=== PATIENT | male | born 1970 | race Caucasian/White ===

== ENCOUNTER 2025-03-06 13:55 | Emergency (ER) | payer MEDICAID, SELFPAY ==
[2025-03-06 13:57] VITALS: BP 112/78; PULSE 117; RESP 19; TEMP 36.4; O2SAT 93
[2025-03-06 14:02] VITALS: PULSE 121; RESP 18; O2SAT 98; BMI 27.3
--- NOTE | 2025-03-06 14:44 | EKG_ITS ---
[facility] Test Date: 2025-03-06 Pat Name: MARY CARMEN HAMEED Department: Room: - Gender: Male Solution Mixer: : 1970 Requested By: Belkis Moreno ([facility]) Mark Order Number: [id number] Reading MD: Belkis Moreno ([facility]) Mark Measurements Intervals [place] Rate: 111 P: 26 CA: 116 QRS: 7 QRSD: 100 T: 34 QT: 296 QTc: 403 Interpretive Statements SINUS TACHYCARDIA WITH SHORT CA INTERVAL NONSPECIFIC T-WAVE ABNORMALITY ABNORMAL RHYTHM ECG No previous ECG available for comparison /store/S0/[id number].pdf
--- NOTE | 2025-03-06 14:44 | XR_ITS ---
Examination: CT brain head without contrast. 2-D sagittal coronal reconstructions Date and time of exam:March 06, 2025 1500 hours INDICATIONS: Patient fell today with injury to the head, head pain CTDI: vol (mGy):49 DLP: (mGycm):1121 Technique: Multiple CT axial sections of the brain have been obtained, 5 mm slice thickness. Contrast has not been administered. 2-D sagittal, coronal reconstructions have been obtained Low dose protocols were performed. One or more of the following dose reduction techniques were used; automated exposure control, adjustment of the mA and/or KV according to patient size, use of iterative reconstruction technique. Findings: Mild ventricular asymmetry Intra-axial or extra-axial hemorrhage density is not seen. No mass effect or midline shift Basal cisterns are not remarkable. Fourth ventricle is midline. Cranial vault intact. Impression: Negative for acute hemorrhage, mass effect or midline shift
--- NOTE | 2025-03-06 14:44 | XR_ITS ---
Examination: AP chest single view Technique one AP portable upright chest single view Exam date and time: March 06, 2025 1517 hours INDICATIONS: Patient fell today, chest pain FINDINGS: Bibasilar opacity most consistent with pneumonia No pneumothorax Normal heart size Clavicles ribs appear intact IMPRESSION: Bibasilar opacity most consistent with pneumonia Possible small left pleural effusion
--- NOTE | 2025-03-06 14:44 | XR_ITS ---
Examination: CT cervical spine without contrast 2-D sagittal reconstructions 2-D coronal reconstructions 3-D reconstructions. Exam date and time:February 1500 hours INDICATIONS: Patient fell today with injury to the neck, neck pain CTDI:vol (mGy) 12.1 DLP: (mGycm) 310 Technique: Multiple 2 mm axial sections of the cervical spine have been obtained. The coronal and sagittal reconstructions have been obtained. 3-D reconstructions have been obtained. Low dose protocols were performed. One or more of the following dose reduction techniques were used; automated exposure control, adjustment of the mA and/or KV according to patient size, use of iterative reconstruction technique. Findings: Axial sections demonstrate intact base of the skull. C1 exhibit satisfactory relationship to the odontoid. No acute cervical vertebral body fracture seen. Alignment posterior spinous processes satisfactory. Impression: No acute cervical fracture.
--- NOTE | 2025-03-06 14:45 | XR_ITS ---
Examination: CT maxillofacial, without intravenous contrast. 2-D sagittal reconstructions. 3-D reconstructions. Date and time of exam:March 06, 2025 at 1500 hours INDICATIONS: Ground-level fall today with injury to the face, facial pain CTDI: vol (mGy):13.9 DLP: (mGycm):307 Technique: Multiple axial images of maxillofacial region, 3.0 mm slice thickness. 2-D sagittal and coronal reconstructions. 3-D reconstructions. Low dose protocols were performed. One or more of the following dose reduction techniques were used; automated exposure control, adjustment of the mA and/or KV according to patient size, use of iterative reconstruction technique. Findings: Frontal bones intact Orbital rims intact No nasal bone fracture No depression zygomatic arches Pterygoid plates maxilla and the mandible intact IMPRESSION: No acute facial fracture.
--- NOTE | 2025-03-06 14:46 | PD.EDRME ---
Rapid Medical Screening Exam RME Arrival date/time: 03/06/25 13:55 This is a 54-year-old male presents emergency department with complaints of fall this p.m. causing laceration and facial trauma. Also complaining of shortness of breath new onset abdominal swelling and bilateral leg swelling.. I have greeted and performed a focused initial assessment of this patient. Initial appropriate labs ordered at this time. A comprehensive ED assessment and evaluation of the patient and analysis of all test and completion of medical decision making process will be conducted by additional ED provider. Time Seen by Provider: 03/06/25 14:44 Vital signs: Vital Signs Temperature 97.5 F 03/06/25 13:57 Pulse Rate 117 H 03/06/25 13:57 Respiratory Rate 19 03/06/25 13:57 Blood Pressure 112/78 03/06/25 13:57 Pulse Oximetry (%) 93 L 03/06/25 13:57 Oxygen Delivery Method Room Air 03/06/25 13:57
[2025-03-06 15:22] LABS: Basophils # (Auto) 0.1 Thou/mm3 (0.0-0.2); Basophils % (Auto) 0 % (0-2.5); Eosinophils # (Auto) 0.1 Thou/mm3 (0.0-0.5); Eosinophils % (Auto) 1 % (0-10); Hematocrit 36.8 % (41.0-53.0); Hemoglobin 12.6 g/dL (13.5-16.0); Immature Granulocytes % (Auto) 1 % (0-0); Immature Granulocytes Auto 0.08 Thou/mm3 (0.00-0.00); Lymphocytes % (Auto) 7 % (10-50); Mean Corpuscular HGB Conc 34.2 g/dl (31.0-37.0); Mean Corpuscular Hemoglobin 38.7 pg (25.0-35.0); Mean Corpuscular Volume 113 fL (80-100); Monocytes # (Auto) 1.3 Thou/mm3 (0.0-0.8); Monocytes % (Auto) 9 % (0-12); Neutrophils # (Auto) 11.8 Thou/mm3 (1.8-7.7); Neutrophils % (Auto) 82 % (37-80); Nucleated Red Blood Cell % 0 /100 WBC (0); Platelet Count 165 Thou/mm3 (140-440); RDW Standard Deviation 59.7 fL (35.1-43.9); Red Blood Count 3.26 Miln/mm3 (4.50-5.90); White Blood Count 14.4 Thou/mm3 (3.8-10.6)
[2025-03-06 15:40] LABS: INR 1.4 (0.9-1.3); Prothrombin Time 15.1 Seconds (9.0-12.2)
[2025-03-06 15:46] LABS: Alanine Aminotransferase 45 U/L (10-49); Albumin, Serum 3.3 gm/dL (3.5-5.0); Albumin/Globulin Ratio 1.2 (1.2-2.2); Alkaline Phosphatase 209 U/L (46-116); Anion Gap 6 (7-16); Aspartate Amino Transferase 129 U/L (0-34); BUN/Creatinine Ratio 17 Ratio (12-20); Bilirubin,Total 4.5 mg/dL (0.3-1.2); Blood Urea Nitrogen 10 mg/dL (9-23); Calcium (Corrected) 9.6 mg/dL (8.5-10.1); Carbon Dioxide 29.5 mMol/L (20.0-31.0); Chloride 94 mMol/L (98-107); Creatinine (Component) 0.6 mg/dL (0.6-1.3); Estimated Creatinine Clearance 140.5 mL/min (>60); Globulin 2.8 gm/dL (2.3-3.5); Glucose 150 mg/dL (74-106); Lipase 33 U/L (12-53); Osmolality,Calculated 260 (275-295); Sodium 129 mMol/L (136-145); Total Protein 6.1 gm/dL (5.7-8.2); Troponin I < 0.002 ng/mL (0.0-0.045); eGFR > 60 See Note
[2025-03-06 15:55] LABS: B-Type Natriuretic Peptide < 20 pg/mL (0-100)
[2025-03-06 16:20] LABS: Path Review Blood Smear Sent to Pathologist
--- NOTE | 2025-03-06 18:22 | PD.EDWOUND ---
ED Wound/Laceration-RME/HPI General Stated Complaint: FALL Time Seen by Provider: 03/06/25 14:44 Arrival date/time: 03/06/25 13:55 RME / HPI RME / HPI narrative: 03/06/25 13:55 This is a 54-year-old male presents emergency department with complaints of fall this p.m. causing laceration and facial trauma. Also complaining of shortness of breath new onset abdominal swelling and bilateral leg swelling.. I have greeted and performed a focused initial assessment of this patient. Initial appropriate labs ordered at this time. A comprehensive ED assessment and evaluation of the patient and analysis of all test and completion of medical decision making process will be conducted by additional ED provider. This section includes all my notes and documentations, including HPI, PE, and ED course. Reuben Cm MD HPI: 54 y/o male here after falling outside about 6 hours ago. Had a mechanical fall after tripping. Landed on his face. No loss of consciousness. No significant headache or dizziness. Reports bleeding wounds in the face. No neck pain or back pain. No chest pain or abdominal pain. No pain in the arms or legs. No other complaints. ROS: All negative except as documented in HPI. Physical Exam: General:? Alert and oriented.? Eyes:? Conjunctivae and lids clear.? EOMI.? PERRL. ENT:? No nasal congestion.? Pharynx normal.? Tympanic membrane normal bilaterally.??? Neck:? Supple.? No tenderness. Heart:? RRR.? Lungs:? No respiratory distress.? Good air movement.? No rhonchi, wheezing, rales.?? Chest:? No tenderness. Abdomen:? Soft and nontender.? Normal bowel sounds.? No distension.? No rebound or guarding.?? Back:? No tenderness.?? Skin:? Warm and dry.??On the nose, there is a 1.25 cm full?skin thickness laceration with active bleeding. In the forehead, there is a jagged 4 cm full?skin thickness laceration with active bleeding. Multiple facial abrasions noted, varying size and shape. Neuro:? Alert and oriented X 3.? Cranial Nerves II-XII grossly intact.? No peripheral motor deficits. Musculoskeletal:? All major joints and bones are not tender with no limited ROM. I reviewed all diagnostic test results. My interpretation of the EKG is sinus rhythm with no acute ST?T changes. My interpretation of the chest x-ray is infiltrates. My review of the head and facial and cervical spine CT reports is NAD. Blood tests unremarkable. At this point, diagnoses include facial lacerations, facial contusion, facial abrasions, and pneumonia. Treatment here included Acetaminophen/Codeine Phosphate, Amoxicillin/Clavulanate Potassium, wound care with bacitracin, Diphtheria/Tetanus/Acell Pertussis. Patient felt much better. Recommend outpatient treatment. Not yet done: Based on my best medical judgment, made decision no further evaluation or treatment indicated at this time. Patient understands and agrees to the discharge instructions customized and printed, see below. Discharge instructions from Dr. Cm:? -- Fortunately, there is no very serious injury. Such as brain injury or broken neck or other broken bone or internal organ injury. -- Your laceration (forehead and nose) was repaired with 8 kelly. -- Keep the current dressing intact for 24 hours. -- After 24 hours, change the dressing once daily. -- First remove the dressing gently.? If it does not come off easily, run water through it until it comes off easily. -- Then gently wash with soap and water. -- After completely drying, apply antibiotic ointment and new dressing. -- Apply ice for 20 minutes every 2-3 hours today and tomorrow. Ibuprofen 800 mg every 6-8 hours today and tomorrow to decrease inflammation then as needed. Tylenol with codeine for severe pain. --Take Augmentin for pneumonia. -- See your doctor or return here in 5 days for staple removal.? Total of 8 kelly. Ask to check the status of your pneumonia. -- Seek immediate medical care with fever, spreading redness from the wound, or with any concerns. Reuben Cm MD Related Data Previous Rx's ?Medication ?Instructions ?Recorded acetaminophen 300 mg-codeine 30 mg 2 tab PO Q8H PRN pain #20 tabs 03/06/25 tablet amoxicillin 875 mg-potassium 1 tab PO BID 5 days #10 tabs 03/06/25 clavulanate 125 mg tablet Allergies Allergy/AdvReac Type Severity Reaction Status Date / Time No Known Allergies Allergy Verified 03/06/25 14:06 Review of Systems Review of Systems Systems Reviewed: All systems reviewed, normal except as documented Narrative Review of Systems: Refer to HPI above. Past Medical History Social History SMOKING STATUS: Never smoker ED Exam Narrative Physical exam: Refer to HPI above. Course Quality Measures none Orders Category Date Time Status CT Screening NOW Care 03/06/25 14:46 Completed EKG (ED ONLY) *Do not use* NOW Care 03/06/25 14:44 Completed Wound Care [Wound Care] NOW Care 03/06/25 18:[address] cervical spine wo con Stat Exams 03/06/25 14:[address] facial bones wo con Stat Exams 03/06/25 14:[address] head/brain wo con Stat Exams 03/06/25 14:44 Completed EKG (ED Only) Stat Exams 03/06/25 14:44 Draft XR chest 1V portable Stat Exams 03/06/25 14:44 Completed B-Type Natriuretic Peptide Stat Lab 03/06/25 15:00 Completed CBC Stat Lab 03/06/25 15:00 Completed Comprehensive Metabolic Panel Stat Lab 03/06/25 15:00 Completed Lipase Stat Lab 03/06/25 15:00 Completed Magnesium Stat Lab 03/06/25 15:00 Completed Path Review Blood Smear Stat Lab 03/06/25 15:00 Completed Prothrombin Time with INR Stat Lab 03/06/25 15:00 Completed Troponin I Stat Lab 03/06/25 15:00 Completed ACETAMINOPHEN w/COD 300-30 [Tylenol w/Cod #3] Med 03/06/25 18:41 Discontinued 2 tab PO X1 ONE Amoxicillin/Pot Clav 875 [Augmentin 875] Med 03/06/25 18:23 Discontinued 1 tab PO X1 ONE Bacitracin Oint pkt Med 03/06/25 18:23 Discontinued 1 gm TOP X1 ONE Lidocaine 1% 20 ml [Xylocaine 1% 20 ML] Med 03/06/25 18:23 Discontinued 20 ml INFL X1 ONE TET,DIP/PERT AC (Adult)-Tdap [Boostrix Adult (Tdap) Med 03/06/25 18:23 Discontinued Vacc] 0.5 ml IMI .ONCE ONE Vital Signs Vital signs: Vital Signs Temperature 97.5 F 03/06/25 13:57 Pulse Rate 117 H 03/06/25 13:57 Respiratory Rate 19 03/06/25 13:57 Blood Pressure 112/78 03/06/25 13:57 Pulse Oximetry (%) 93 L 03/06/25 13:57 Oxygen Delivery Method Room Air 03/06/25 13:57 Procedures -ED Laceration Laceration 1: Site: face (Forehead, Nose) Local Anesthetic: lidocaine 1% Pre-repair: wound explored and irrigated extensively Skin layer closed with: other (Staple - Nose x2, Forehead x6) Wound / Laceration MDM Narrative MDM Narrative:: Scribe Attestation: Yamileth Dhillon am scribing for and in the presence of Dr. Cm. Provider Notation: Although this document has been carefully reviewed, there may still be some phonetic and other typographical errors. These errors are purely grammatical due to imperfections in the software program and should not be construed in any way to compromise the substance of the patient's medical care during this visit. Patient data External records reviewed:: [facility] previous records (No prior ED records to review.) Clinical information provided by:: patient Social determinants that could affect healthcare access:: none Patient has the following chronic illnesses:: None How is presenting disease/condition affected by chronic disease/condition?: no chronic disease Evaluation data The following diagnostics were reviewed and interpreted by me:: lab results, radiology exam(s) and EKG tracing(s) Lab and/or radiology exams considered but not ordered:: None Interpretation Summary: Pneumonia and no internal injury Medications / Prescriptions Medications or Prescriptions considered but not ordered:: None Medication administrations:: Medication Administration History Discontinued Medications Acetaminophen/Codeine Phosphate (Acetaminophen W/Cod 300-30 Tablet) 2 tab PO X1 ONE Stop: 03/06/25 18:42 Amoxicillin/Clavulanate Potassium (Amoxicillin/Pot Clav 875 Tablet) 1 tab PO X1 ONE Stop: 03/06/25 18:24 Bacitracin (Bacitracin Oint 1 Gm Packet) 1 gm TOP X1 ONE Stop: 03/06/25 18:24 Diphtheria/Tetanus/Acell Pertussis (Diphth,Pertuss(Acell),Tet Vac 0.5 Ml Syr- Adult) 0.5 ml IMi .ONCE ONE Stop: 03/06/25 18:24 Lidocaine HCl (Lidocaine Hcl 1% 20 Ml Vial) 20 ml INFL X1 ONE Stop: 03/06/25 18:24 Acetaminophen/Codeine Phosphate, Amoxicillin/Clavulanate Potassium, Bacitracin, Diphtheria/Tetanus/Acell Pertussis, Lidocaine HCl Consultations Consultation(s) initiated? (list below): No Diagnosis Wound Differential Diagnosis: laceration, abrasion, avulsion of skin and other (Brain injury, fracture, internal organ injury) Most likely diagnosis given after review of the tests above:: Facial contusion and lacerations and abrasions and pneumonia Admission Indicated Admission indicated?: not indicated Explain why admission is indicated or not indicated:: With significant improvement, there was no indication for admission. Admission Request Was there a request for admission?: No Disposition Plan Disposition Plan: Discharge Discharge Attestation Discharge Attestation: The patient and all family members were given an opportunity to ask questions and understood the discharge instructions. Discharge instructions specifically effects, indications for sooner follow up or return to the emergency department, and the expected course of current diagnosis. Patient condition: Stable Discharge Plan Plan Patient Disposition: HOME (Self Care) Prescriptions/Referrals Prescriptions/Med Rec: New acetaminophen-codeine 300-30 mg tablet 2 tab PO Q8H MDD 6 PRN (Reason: pain) Qty: 20 0RF amoxicillin-pot clavulanate 875-125 mg tablet 1 tab PO BID 5 Days Qty: 10 0RF Referrals: No Primary/Family,Physician [Primary Care Provider] - In 1 week Problem List Clinical Impression: Face lacerations, Multiple abrasions, Facial contusion, Pneumonia Patient/Caregiver Discharge Instructions Discharge Activity: activity as tolerated Education Materials: ED Abrasions, ED Facial Contusion, ED Head Injury (Adult), ED Laceration, Face: Stitches or Tape, ED Pneumonia (Adult) Additional Instructions: Discharge instructions from Dr. Cm:? -- Fortunately, there is no very serious injury. Such as brain injury or broken neck or other broken bone or internal organ injury. -- Your laceration (forehead and nose) was repaired with 8 kelly. -- Keep the current dressing intact for 24 hours. -- After 24 hours, change the dressing once daily. -- First remove the dressing gently.? If it does not come off easily, run water through it until it comes off easily. -- Then gently wash with soap and water. -- After completely drying, apply antibiotic ointment and new dressing. -- Apply ice for 20 minutes every 2-3 hours today and tomorrow. Ibuprofen 800 mg every 6-8 hours today and tomorrow to decrease inflammation then as needed. Tylenol with codeine for severe pain. --Take Augmentin for pneumonia. -- See your doctor or return here in 5 days for staple removal.? Total of 8 kelly. Ask to check the status of your pneumonia. -- Seek immediate medical care with fever, spreading redness from the wound, or with any concerns. Print Language: Greenlandic Stand Alone Forms: Pooja Award Info., Patient Portal Info Letter
[2025-03-06 18:46] VITALS: BP 112/75; PULSE 90; RESP 18; TEMP 36.3; O2SAT 96
== END 2025-03-06 18:56 | disposition home or self-care (01) ==
PROVIDERS: Nurse Practitioner Primary Care; Emergency Provider Emergency Medicine
DX: S01.21XA Laceration without foreign body of nose, initial encounter (principal); S01.81XA Laceration without foreign body of other part of head, initial encounter; S19.9XXA Unspecified injury of neck, initial encounter; S09.90XA Unspecified injury of head, initial encounter; S09.93XA Unspecified injury of face, initial encounter; J18.9 Pneumonia, unspecified organism; R00.0 Tachycardia, unspecified; W01.0XXA Fall on same level from slipping, tripping and stumbling without subsequent striking against object, initial encounter
CPT/HCPCS: 12014; 36415; 70450; 70486; 71045; 72125; 80053; 80074; 83690; 83735; 83880; 84484; 85025; 85610; 93005; 99284

== ENCOUNTER 2025-03-11 18:30 | Emergency (ER) | payer MEDICAID, SELFPAY ==
[2025-03-11 18:31] VITALS: BMI 27.3
[2025-03-11 19:08] VITALS: BP 120/80; PULSE 126; RESP 22; TEMP 36.8; O2SAT 95
--- NOTE | 2025-03-11 19:18 | EDNOTE_ITS ---
ED Wound/Laceration-RME/HPI General Chief Complaint: General Adult/Misc Complain Stated Complaint: GET KELLY REMOVED FROM FOREHEAD & NOSE Time Seen by Provider: 03/11/25 19:15 Arrival date/time: 03/11/25 18:30 54M with no known PMH (though does admit to drinking alcohol) presents to ED with suture removal from fall 5 days ago that was seen here initially. Limitations: no limitations Related Data Previous Rx's ?Medication ?Instructions ?Recorded acetaminophen 300 mg-codeine 30 mg 2 tab PO Q8H PRN pa in #20 tabs 03/06/25 tablet Allergies Allergy/AdvReac Type Severity Reaction Status Date / Time No Known Allergies Allergy Verified 03/11/25 18:32 Review of Systems Review of Systems Systems Reviewed: All systems reviewed, normal except as documented Constitutional Constitutional: Reports system reviewed and no additional complaints, except as documented, Denies fever(s) and Denies headache(s) ENT Ears, Nose, Mouth, and Throat: Denies disequilibrium and Denies headache(s) Cardiovascular Cardiovascular: Reports system reviewed and no additional complaints, except as documented, Denies chest pain and Denies dyspnea Respiratory Respiratory: Reports system reviewed and no additional complaints, except as documented, Denies cough and Denies dyspnea Gastrointestinal Gastrointestinal: Reports system reviewed and no additional complaints, except as documented, Denies abdominal pain, Denies nausea and Denies vomiting Neurologic Neurologic: Reports system reviewed and no additional complaints, except as documented, Denies confusion, Denies disequilibrium and Denies headache(s) Psychiatric Psychiatric: Denies confusion Past Medical History Social History SMOKING STATUS: Never smoker ED Exam General Limitations: Present no limitations General appearance: Present alert and in no apparent distress Expanded Head Exam Head exam physical: Present laceration (healing incisions on forehead and nose; 8 kelly total) Eye Eye exam: Present normal appearance, PERRL and EOMI ENT ENT exam: Present normal exam, normal oropharynx and mucous membranes moist Neck Neck exam: Present normal inspection, full ROM and trachea midline Chest Chest inspection: Present normal inspection and symmetric chest wall rise Respiratory Respiratory exam: Present normal lung sounds bilaterally Cardiovascular Cardiovascular exam: Present regular rate, normal rhythm and normal heart sounds Abdominal Exam Abdominal exam: Present soft and normal bowel sounds Extremities Exam Extremities exam: Present normal inspection and full ROM Back Exam Back exam: Present normal inspection and full ROM Neurological Exam Neurological exam: Present alert, oriented X3 and CN II-XII intact Psychiatric Psychiatric exam: Present normal affect and normal mood Skin Skin exam: Present warm, dry, intact and normal color Course Quality Measures none Orders Category Date Time Status Suture / Staple Removal NOW Care 03/11/25 19:15 Active Wound Care NOW Care 03/11/25 19:15 Active Vital Signs Vital signs: Vital Signs Temperature 98.2 F 03/11/25 19:08 Pulse Rate 126 H 03/11/25 19:08 Respiratory Rate 22 H 03/11/25 19:08 Blood Pressure 120/80 03/11/25 19:08 Pulse Oximetry (%) 95 03/11/25 19:08 Oxygen Delivery Method Room Air 03/11/25 19:08 O2 at 95% on RA and WNLs Wound / Laceration MDM Narrative MDM Narrative:: 54M with no known PMH (though does admit to drinking alcohol) presents to ED with suture removal from fall 5 days ago that was seen here initially. Physical exam reveals kelly around mostly-healed incision on forehead and nose. Patient is afebrile, calm, and alert. Patient is noticed to have some bilateral leg swelling, but patient does not want to be evaluated for that. 8 kelly were removed without incident. Pail Tester given. Patient data External records reviewed:: [facility] previous records Clinical information provided by:: patient Social determinants that could affect healthcare access:: none Patient has the following chronic illnesses:: none How is presenting disease/condition affected by chronic disease/condition?: no chronic disease Evaluation data The following diagnostics were reviewed and interpreted by me:: other (specify) (none) Lab and/or radiology exams considered but not ordered:: not ordered Interpretation Summary: n/a Medications / Prescriptions Medications or Prescriptions considered but not ordered:: not ordered Medication administrations:: n/a Consultations Consultation(s) initiated? (list below): No Diagnosis Wound Differential Diagnosis: laceration, abscess, abrasion, avulsion of skin and other (suture removal) Most likely diagnosis given after review of the tests above:: suture removal Admission Indicated Admission indicated?: not indicated Admission Request Was there a request for admission?: No Disposition Plan Disposition Plan: Discharge Discharge Attestation Discharge Attestation: The patient and all family members were given an opportunity to ask questions and understood the discharge instructions. Discharge instructions specifically effects, indications for sooner follow up or return to the emergency department, and the expected course of current diagnosis. Patient condition: Stable Discharge Plan Plan Patient Disposition: HOME (Self Care) Disposition Comment: Stable Prescriptions/Referrals Prescriptions/Med Rec: No Action acetaminophen-codeine 300-30 mg tablet 2 tab PO Q8H MDD 6 PRN (Reason: pain) Qty: 20 0RF Problem List Clinical Impression: Visit for suture removal Patient/Caregiver Discharge Instructions Education Materials: ED Stitches/Staple Removal No ... Additional Instructions: Please follow-up with PCP within 24-48 hours and return immediately if symptoms worsen. Print Language: Frisian Stand Alone Forms: Patient Portal Info Letter SIMRAN/BROOK Supervising Physician SIMRAN/BROOK Supervising Physician: Dr. Khan
== END 2025-03-11 19:25 | disposition home or self-care (01) ==
LOC: SERX 19:23
PROVIDERS: Emergency Provider Emergency Medicine
DX: S01.81XD Laceration without foreign body of other part of head, subsequent encounter (principal); S01.21XD Laceration without foreign body of nose, subsequent encounter; W19.XXXD Unspecified fall, subsequent encounter
CPT/HCPCS: 99282